=== PATIENT | female | born 1950 ===

== ENCOUNTER 2021-02-02 10:45 | Inpatient (IN) | payer OTHER ==
[~2021-02-02] VITALS: Ht 152.4 cm; Wt 72.1 kg
[2021-02-02] MEDS ORDERED: TOPROL XL100 M1 PO (15:02)
[2021-02-02] MEDS ORDERED: MICARDIS80 MG PO (15:02)
[2021-02-02] MEDS ORDERED: ZOLOFT50 MG PO (15:02)
[2021-02-02] MEDS ORDERED: VYTORIN 10-201 EACH PO (15:03)
[2021-02-02] MEDS ORDERED: CLONAZEPAM0.5 MG PO (15:03)
[2021-02-02] MEDS ORDERED: D3 + K2 DOTS 11 EACH PO (15:03)
[2021-02-03] MEDS ORDERED: CLONIDINE HCL0.1 MG (16:13)
[2021-02-03] MEDS ORDERED: VITAMIN D3250 MCG (16:13)
[2021-02-03] MEDS ORDERED: PROTECT CARDIO1 EAC1 (16:13)
== END 2021-02-05 13:01 | disposition home or self-care (01) | DRG 741 ==
LOC: O/R 02-03 05:07 → OB/GYN 02-03 05:07 → SURH 02-03 10:45 → OB/GYN 02-03 16:57 → SURG-SUITE 02-04 11:56
PROVIDERS: ADMIT Specialist; ATTEND Specialist
PROC: 0UT2FZZ Resection of Bilateral Ovaries, Via Natural or Artificial Opening With Percutaneous Endoscopic Assistance (ICD-10-PCS; 2021-02-03)
PROC: 0UT7FZZ Resection of Bilateral Fallopian Tubes, Via Natural or Artificial Opening With Percutaneous Endoscopic Assistance (ICD-10-PCS; 2021-02-03)
PROC: 07BC4ZZ Excision of Pelvis Lymphatic, Percutaneous Endoscopic Approach (ICD-10-PCS; 2021-02-03)
PROC: 0UT9FZZ Resection of Uterus, Via Natural or Artificial Opening With Percutaneous Endoscopic Assistance (ICD-10-PCS; principal; 2021-02-03 11:30)
DX: C54.1 Malignant neoplasm of endometrium (principal); D25.1 Intramural leiomyoma of uterus; D25.0 Submucous leiomyoma of uterus